=== PATIENT | female | born 1985 | race Caucasian/White ===

== ENCOUNTER 2017-07-08 15:09 | Emergency (ER) | payer MEDICAID ==
[2017-07-08 15:20] VITALS: BP 122/85; PULSE 100; TEMP 97.7; O2SAT 98
[2017-07-08 15:28] VITALS: RESP 16
--- NOTE | 2017-07-08 16:11 | C.PDOC ---
Time Seen by Provider: 07/08/17 15:56 Chief Complaint (Nursing): Shortness Of Breath Past Medical History Vital Signs: Last Vital Signs Temp 97.7 F 07/08/17 15:16 Pulse 100 H 07/08/17 15:16 Resp 16 07/08/17 15:27 BP 122/85 07/08/17 15:16 Pulse Ox 98 07/08/17 15:16 - Medical History PMH: Asthma - Social History Hx Alcohol Use: Yes Hx Substance Use: No - Immunization History Hx Tetanus Toxoid Vaccination: No Hx Influenza Vaccination: Yes (2015) Hx Pneumococcal Vaccination: No ED Course And Treatment O2 Sat by Pulse Oximetry: 98 Disposition Counseled Patient/Family Regarding: Diagnosis, Need For Followup, Rx Given - Disposition Disposition: HOME/ ROUTINE Disposition Time: 16:04 Condition: STABLE Additional Instructions: Follow up with your doctor. Return to the Emergency Department if symptoms are getting worst. Prescriptions: Albuterol HFA [Ventolin HFA 90 mcg/actuation (8 g)] 1 puff IH QID PRN #1 puff PRN Reason: Cough Instructions: Dyspnea (ED) Forms: [facility] (Togolese), General Discharge Instructions - POA Present On Arrival: None - Clinical Impression Clinical Impression: Dyspnea
--- NOTE | 2017-07-08 16:16 | C.PDOC ---
History Of Present Illness 32 yr old female with PMHx of asthma, never been hospitalized, presents to the ER with complaints of feeling SOB, coughing and congestion. Patient reports she uses albuterol at home. Denies fever, chest pain, nausea, vomiting, abdominal pain, weakness or numbness. Time Seen by Provider: 07/08/17 15:56 Chief Complaint (Nursing): Shortness Of Breath History Per: Patient History/Exam Limitations: no limitations Onset/Duration Of Symptoms: Days Past Medical History Reviewed: Historical Data, Nursing Documentation, Vital Signs Vital Signs: Last Vital Signs Temp 97.7 F 07/08/17 15:16 Pulse 100 H 07/08/17 15:16 Resp 16 07/08/17 15:27 BP 122/85 07/08/17 15:16 Pulse Ox 98 07/08/17 16:18 - Medical History PMH: Asthma Family History: States: No Known Family Hx - Social History Hx Alcohol Use: Yes Hx Substance Use: No - Immunization History Hx Tetanus Toxoid Vaccination: No Hx Influenza Vaccination: Yes (2015) Hx Pneumococcal Vaccination: No Review Of Systems Except As Marked, All Systems Reviewed And Found Negative. Constitutional: Negative for: Fever ENT: Positive for: Nose Congestion Cardiovascular: Negative for: Chest Pain Respiratory: Positive for: Cough, Shortness of Breath Gastrointestinal: Negative for: Nausea, Vomiting, Abdominal Pain Neurological: Negative for: Weakness, Numbness Physical Exam - Physical Exam Appears: Non-toxic, No Acute Distress Skin: Warm, Dry, No Rash Head: Atraumatic, Normacephalic Oral Mucosa: Moist Chest: Symmetrical, No Tenderness Cardiovascular: Rhythm Regular, No Murmur Respiratory: Normal Breath Sounds, No Rales, No Rhonchi, No Stridor, No Wheezing Gastrointestinal/Abdominal: Normal Exam, Soft, No Tenderness, No Guarding, No Rebound Extremity: Normal ROM, No Swelling Neurological/Psych: Oriented x3, Normal Speech, Normal Motor ED Course And Treatment O2 Sat by Pulse Oximetry: 98 (RA ) Disposition - Disposition Disposition: HOME/ ROUTINE Disposition Time: 16:04 Condition: STABLE Additional Instructions: Follow up with your doctor. Return to the Emergency Department if symptoms are getting worst. Prescriptions: Albuterol HFA [Ventolin HFA 90 mcg/actuation (8 g)] 1 puff IH QID PRN #1 puff PRN Reason: Cough Instructions: Dyspnea (ED) Forms: General Discharge Instructions, [facility] (Vietnamese) - Clinical Impression Clinical Impression: Dyspnea - Scribe Statement The provider has reviewed the documentation as recorded by the Kathrynibe Rois Aj Provider Attestation: All medical record entries made by the Kathrynibe were at my direction and personally dictated by me. I have reviewed the chart and agree that the record accurately reflects my personal performance of the history, physical exam, medical decision making, and the department course for this patient. I have also personally directed, reviewed, and agree with the discharge instructions and disposition.
== END 2017-07-08 16:24 | disposition home or self-care (01) ==
LOC: C.ER 15:09
DX: R06.00 Dyspnea, unspecified (principal)

== ENCOUNTER 2017-09-07 18:34 | Emergency (ER) | payer MEDICAID ==
[2017-09-07 18:59] VITALS: BMI 29.2
[2017-09-07 19:01] VITALS: BP 100/65; PULSE 79; RESP 18; TEMP 98.7; O2SAT 97
--- NOTE | 2017-09-07 20:05 | C.PDOC ---
History Of Present Illness 32 year old female, history of plantar wart to right foot and is 1 year status post partial resection of wart, presents to the ED reporting that her plantar wart has returned. She notes that it is painful to weightbear on right foot. She denies trauma. Time Seen by Provider: 09/07/17 19:20 Chief Complaint (Nursing): Abnormal Skin Integrity History Per: Patient History/Exam Limitations: no limitations Current Symptoms Are (Timing): Still Present Past Medical History Reviewed: Historical Data, Nursing Documentation, Vital Signs Vital Signs: Last Vital Signs Temp 98.7 F 09/07/17 18:59 Pulse 79 09/07/17 18:59 Resp 18 09/07/17 18:59 BP 100/65 09/07/17 18:59 Pulse Ox 97 09/07/17 20:18 - Medical History PMH: Asthma Family History: States: Unknown Family Hx - Social History Hx Alcohol Use: Yes Hx Substance Use: No - Immunization History Hx Tetanus Toxoid Vaccination: No Hx Influenza Vaccination: Yes (2015) Hx Pneumococcal Vaccination: No Review Of Systems Musculoskeletal: Positive for: Foot Pain Physical Exam - Physical Exam Appears: Non-toxic, No Acute Distress Eye(s): bilateral: Normal Inspection Extremity: Other (firm, dry, well defined area of induration to the plantar aspect of the right foot at the heel, no erythema, no fluctuance, no warmth, ambulating with limp due to pain, good pulses bilaterally, strength intact) Extremity: Right: Painful To Bear Weight, Bilateral: Atraumatic, Normal Color And Temperature Neurological/Psych: Oriented x3 Gait: With Assistance ED Course And Treatment O2 Sat by Pulse Oximetry: 97 Medical Decision Making Medical Decision Making: Patient placed in crutches and instructed on use. Advised to follow up with podiatry. Disposition Counseled Patient/Family Regarding: Diagnosis, Need For Followup, Rx Given - Disposition Disposition: HOME/ ROUTINE Disposition Time: 20:03 Condition: STABLE Additional Instructions: Please follow up with Podiatry Chloe for pain Return to ER if worse Instructions: Plantar Wart (ED) Forms: [facility] (Urdu) - Clinical Impression Clinical Impression: Plantar wart of right foot - Scribe Statement The provider has reviewed the documentation as recorded by the Scribe Jorge Encinas
== END 2017-09-07 20:22 | disposition home or self-care (01) ==
LOC: C.ER 18:34
DX: B07.0 Plantar wart (principal)

== ENCOUNTER 2018-02-12 19:42 | Emergency (ER) | payer MEDICAID ==
[2018-02-12 19:42] VITALS: BMI 29.2
[2018-02-12 20:11] VITALS: BP 112/78; PULSE 83; RESP 20; TEMP 98.1; O2SAT 98
--- NOTE | 2018-02-12 20:30 | C.PDOC ---
History Of Present Illness Patient is a 32 y/o female who presents to the ED with left-sided neck pain that radiates to the left shoulder for the last 2 days. Patient notes pain worsens with movement. Reports to have two small children and admits to heavy lifting often, but otherwise denies any other trauma, weakness, numbness, chest pain, SOB, or URI symptoms. Patient has no other physical complaints at this time. Time Seen by Provider: 02/12/18 20:14 Chief Complaint (Nursing): Upper Extremity Problem/Injury History Per: Patient History/Exam Limitations: no limitations Onset/Duration Of Symptoms: Days (2 days) Current Symptoms Are (Timing): Still Present Recent travel outside of the [place]: No Past Medical History Reviewed: Historical Data, Nursing Documentation, Vital Signs Vital Signs: Last Vital Signs Temp 98.1 F 02/12/18 20:07 Pulse 83 02/12/18 20:07 Resp 20 02/12/18 20:49 BP 112/78 02/12/18 20:07 Pulse Ox 98 02/13/18 00:23 - Medical History PMH: Asthma Surgical History: No Surg Hx Family History: States: No Known Family Hx - Social History Hx Tobacco Use: Yes (light smoker) Hx Alcohol Use: Yes Hx Substance Use: No - Immunization History Hx Tetanus Toxoid Vaccination: No Hx Influenza Vaccination: Yes (2016) Hx Pneumococcal Vaccination: No Review Of Systems Constitutional: Negative for: Fever, Chills ENT: Negative for: Nose Discharge, Throat Pain Cardiovascular: Negative for: Chest Pain Respiratory: Negative for: Cough, Shortness of Breath Musculoskeletal: Positive for: Neck Pain (left-sided), Shoulder Pain (left) Neurological: Negative for: Weakness, Numbness Physical Exam - Physical Exam Appears: Well, Non-toxic Head: Atraumatic Eye(s): bilateral: Normal Inspection, PERRL Oral Mucosa: Moist Neck: Paracervical Tenderness (left paracervical area), Supple Chest: No Tenderness (negative chest wall tenderness) Cardiovascular: Rhythm Regular, No Murmur Respiratory: Normal Breath Sounds, No Wheezing Extremity: Normal ROM (full range of motion of left upper extremity, but pain reproduceable secondary to movement), Tenderness (left shoulder and distal clavicular area), Other (good strength to left arm) Extremity: Bilateral: Atraumatic, Normal Color And Temperature Pulses: Left Brachial: Normal, Right Brachial: Normal Neurological/Psych: Oriented x3, Normal Motor, Normal Sensation (left arm) Gait: Steady ED Course And Treatment O2 Sat by Pulse Oximetry: 98 Progress Note: Flexeril and motrin administered. On re-eval, patient is resting comfortably and stable for discharge. Sling applied to left arm for support and patient advised to follow up with PMD in 1-2 days. Patient agrees with plan and discharge instructions. Disposition Counseled Patient/Family Regarding: Diagnosis, Need For Followup - Disposition Referrals: Rose Huston MD [Medical Doctor] - Disposition: HOME/ ROUTINE Disposition Time: 20:32 Condition: STABLE Additional Instructions: Please follow up with PMD Take meds as directed Return to ER if symptoms worsen Prescriptions: Cyclobenzaprine [Cyclobenzaprine HCl] 10 mg PO HS #10 tab Ibuprofen [Motrin] 600 mg PO Q6H #20 tab Instructions: Muscle Strain (DC) Forms: [employer] (Welsh) - Clinical Impression Clinical Impression: Muscle strain - Scribe Statement The provider has reviewed the documentation as recorded by the Scribe Bia Lindsay All medical record entries made by the Scribe were at my direction and personally dictated by me. I have reviewed the chart and agree that the record accurately reflects my personal performance of the history, physical exam, medical decision making, and the department course for this patient. I have also personally directed, reviewed, and agree with the discharge instructions and disposition.
== END 2018-02-12 20:49 | disposition home or self-care (01) ==
LOC: C.ER 19:42
DX: S16.1XXA Strain of muscle, fascia and tendon at neck level, initial encounter (principal); X58.XXXA Exposure to other specified factors, initial encounter